=== PATIENT | male | born 1970 | race Caucasian/White ===

== ENCOUNTER 2017-01-24 01:59 | Inpatient (IN) | payer MEDICARE ==
[2017-01-24] MEDS ORDERED: NALOXONE 0.4 MG/ML 10 ML VIAL ONE ×2 (02:00→02:27)
[2017-01-24] MEDS ORDERED: DEXTROSE 50%-WATER 50 ML SYRINGE IVP ONE ×2 (02:00→10:54)
[2017-01-24] MEDS ORDERED: DEXTROSE 5%-0.45% NACL 1,000 ML BAG IV ONE (02:00)
[2017-01-24] MEDS ORDERED: SODIUM CHLORIDE 0.9% 500 ML BAG ONE ×2 (02:27→07:10)
[2017-01-24] MEDS ORDERED: RX INFO: IV CONTRAST WAS GIVEN 1 EACH MISC MISCELLANE PRN (04:37)
[2017-01-24] MEDS ORDERED: NALOXONE 0.4 MG/ML 1 ML VIAL IV PRN (04:38)
[2017-01-24] MEDS ORDERED: DEXTROSE 5%-0.45% NACL 1,000 ML IV SCH (04:45)
[2017-01-24 05:22] LABS: Basophils # (A) 0.1 k/uL (0-0.2); Basophils % (A) 0 %; CH 31.4; CHCM 31.8; Eosinophils # (A) 0.1 k/uL (0-0.7); Eosinophils % (A) 0 %; HCT 42.6 % (39.0-53.0); HDW 2.99; Hypochromasia Slight; Luc # (Auto) 0.16; Luc % (Auto) 1; Lymphocytes # (A) 2.5 k/uL (1.0-4.8); Lymphocytes % (A) 9 %; MCH 32.6 pg (25.0-35.0); MCHC 32.8 g/dL (31.0-37.0); MCV 99.2 fL (80.0-100.0); Mean Platelet Volume 8.5; Monocytes % (A) 4 %; Neutrophils % (A) 86 %; RBC 4.29 m/uL (4.30-5.90); RDW 12.8 % (11.5-15.5); WBC (Perox) 27.28
[2017-01-24 05:29] LABS: WBC 26.8 k/uL (3.8-10.6)
[2017-01-24 05:40] LABS: INR 3.1 (<1.1); Prothrombin Time 29.7 sec (9.0-12.0)
[2017-01-24 05:42] LABS: Partial Thromboplastin Time 81.2 sec (22.0-30.0)
[2017-01-24] MEDS ORDERED: WATER IV ONE ×4 (05:44→10:45)
[2017-01-24] MEDS ORDERED: ACETYLCYSTEINE IV ONE ×4 (05:44→10:45)
[2017-01-24] MEDS ORDERED: DEXTROSE 5% IV ONE ×4 (05:44→10:45)
[2017-01-24] MEDS ORDERED: diphenhydrAMINE 50 MG/ML 1 ML VIAL IVP ONE (05:44)
[2017-01-24] MEDS ORDERED: SODIUM CHLORIDE 0.9% 500 ML IV STA (05:46)
[2017-01-24] MEDS ORDERED: SODIUM CHLORIDE 0.9% 1,000 ML IV STA ×2 (05:46)
[2017-01-24] MEDS ORDERED: SODIUM CHLORIDE 0.9% 2,000 ML IV STA (05:46)
[2017-01-24] MEDS ORDERED: NOREPINEPHRIN 16 MG-0.9%NS PMX 16 MG/250 ML ML IV ONE (05:47)
[2017-01-24] MEDS ORDERED: DEXTROSE 5%-0.45% NACL 1,000 ML IV ONE (05:47)
[2017-01-24 05:48] LABS: ABG PH 7.11 (7.35-7.45)
[2017-01-24 05:49] LABS: ABG Base Excess -13.6 mmol/L; ABG HCO3 14 mmol/L (21-25); ABG PCO2 46 mmHg (35-45); ABG PO2 179 mmHg (83-108); ABG TCO2 16 mmol/L (19-24)
[2017-01-24] MEDS ORDERED: PANTOPRAZOLE 40 MG/10 ML VIAL IVP STA (05:49)
[2017-01-24 05:57] LABS: Manual Review Performed
--- NOTE | 2017-01-24 05:57 | XR ---
EXAM: XR Chest, 1 View CLINICAL HISTORY: Reason: cardiac arrest/ tube placement TECHNIQUE: Frontal view of the chest. COMPARISON: None. FINDINGS: Lungs: Hazy prominence of the central pulmonary vasculature with mild peribronchial cuffing suggesting mild pulmonary edema, likely cardiogenic in nature. Pleural space: Unremarkable. No pneumothorax. Heart: Unremarkable. No cardiomegaly. Mediastinum: Unremarkable. Bones/joints: Unremarkable. Tubes, lines and devices: Right-sided IJ central venous line with tip overlying the SVC. ET tube seen with tip approximately 5.5 cm from the mendoza. Upper abdomen: Elevated left hemidiaphragm. IMPRESSION: 1. Right-sided IJ central venous line and ET tube place, as above. 2. Likely mild pulmonary edema, likely cardiogenic in nature.
[2017-01-24] MEDS ORDERED: NALOXONE 4 MG in SODIUM CHLORIDE 0.9% 100 ML IV PRN (06:00)
[2017-01-24 06:05] LABS: Creatine Kinase MB 51.8 ng/mL (0.0-2.4); Troponin I 1.91 ng/mL (0.000-0.034)
[2017-01-24 06:06] LABS: Acetaminophen <10.0 ug/mL; Alcohol 10 mg/dL; Alkaline Phosphatase 142 U/L (38-126); Anion Gap 19 mmol/L; Blood Urea Nitrogen 14 mg/dL (9-20); Calcium 6.6 mg/dL (8.4-10.2); Carbon Dioxide 16 mmol/L (22-30); Chloride 103 mmol/L (98-107); Glucose 435 mg/dL (74-99); Magnesium 2.9 mg/dL (1.6-2.3); Non-African American GFR(MDRD) 26 (>60 ml/min/1.73 sqM); Potassium 5.4 mmol/L (3.5-5.1); Salicylate <1.0 mg/dL; Sodium 138 mmol/L (137-145); Total Bilirubin 0.9 mg/dL (0.2-1.3); Total Protein 4.1 g/dL (6.3-8.2)
[2017-01-24 06:07] LABS: Phosphorous 9.4 mg/dL (2.5-4.5)
[2017-01-24 06:08] LABS: ALT 4011 U/L (21-72); AST 3082 U/L (17-59)
[2017-01-24 06:11] LABS: Amorphous Sediment,Urine Rare /hpf; Appearance,Urine Cloudy (Clear); Bilirubin,Urine Negative (Negative); Glucose,Urine (UA) 3+ (Negative); Ketones,Urine Negative (Negative); Leukocyte Esterase,Urine Negative (Negative); Nitrite,Urine Negative (Negative); Particle Count 11348; Protein,Urine 1+ (Negative); RBC,Urine 8 /hpf (0-5); Specific Gravity,Urine 1.019 (1.001-1.035); Sperm,Urine Few /hpf; UA Billing (MACRO vs. MICRO) MICRO; Urobilinogen,Urine <2.0 mg/dL (<2.0)
[2017-01-24 06:13] LABS: Acetaminophen <10.0 ug/mL; Alcohol <10 mg/dL; Alkaline Phosphatase 206 U/L (38-126); Anion Gap 15 mmol/L; Blood Urea Nitrogen 15 mg/dL (9-20); Calcium 6.6 mg/dL (8.4-10.2); Carbon Dioxide 18 mmol/L (22-30); Chloride 102 mmol/L (98-107); Glucose 411 mg/dL (74-99); Magnesium 2.9 mg/dL (1.6-2.3); Non-African American GFR(MDRD) 23 (>60 ml/min/1.73 sqM); Salicylate <1.0 mg/dL; Sodium 135 mmol/L (137-145); Total Bilirubin 1.1 mg/dL (0.2-1.3); Total Protein 4.5 g/dL (6.3-8.2)
[2017-01-24 06:14] LABS: Phosphorous 8.5 mg/dL (2.5-4.5); Potassium 6.4 mmol/L (3.5-5.1)
[2017-01-24 06:15] LABS: ALT 5999 U/L (21-72); AST 4741 U/L (17-59)
[2017-01-24 06:21] LABS: Creatine Kinase MB 99.6 ng/mL (0.0-2.4)
[2017-01-24 06:22] LABS: Troponin I 2.86 ng/mL (0.000-0.034)
[2017-01-24 06:35] LABS: Basophils # (A) 0.1 k/uL (0-0.2); Basophils % (A) 1 %; CHCM 31.9; Eosinophils % (A) 0 %; HCT 35.4 % (39.0-53.0); HGB 11.8 gm/dL (13.0-17.5); Luc # (Auto) 0.15; Luc % (Auto) 1; Lymphocytes # (A) 1.6 k/uL (1.0-4.8); Lymphocytes % (A) 11 %; MCH 33.5 pg (25.0-35.0); MCHC 33.2 g/dL (31.0-37.0); MCV 100.8 fL (80.0-100.0); Mean Platelet Volume 8.6; Monocytes # (A) 0.6 k/uL (0-1.0); Monocytes % (A) 4 %; Neutrophils # (A) 12.3 k/uL (1.3-7.7); Neutrophils % (A) 83 %; RBC 3.51 m/uL (4.30-5.90); RDW 12.9 % (11.5-15.5); WBC 14.8 k/uL (3.8-10.6); WBC (Perox) 14.96
[2017-01-24 06:36] LABS: INR 4.4 (<1.1); Prothrombin Time 42.9 sec (9.0-12.0)
[2017-01-24 06:37] LABS: Partial Thromboplastin Time 82.7 sec (22.0-30.0)
[2017-01-24] MEDS ORDERED: SODIUM CHLORIDE 0.9% 1,000 ML BAG ONE (07:10)
[2017-01-24] MEDS: IPRATROPIUM-ALBUTEROL 3 ML NEB INHALATION PRN ×2 (07:36→11:48)
--- NOTE | 2017-01-24 07:41 | ED ---
General Adult HPI - General Stated complaint: Unresponsive Source: RN notes reviewed, old records reviewed - History of Present Illness Initial comments: This is a 46-year-old male ER for evaluation found in cardiopulmonary arrest, patient is unable to give history secondary to his comorbid condition, history of pain from he wasn't patient's , per EMS there called the patient house for arrest, patient was found down cyanotic discharge CPR, patient does have history of back pain and back disease, he does take [place] benzos, states patient was operon 1 PM yesterday and then took a nap and she found him about 1 AM this morning struggling, decreased frustrates status, change of color, CPR was started by family - Related Data Allergies Allergy/AdvReac Type Severity Reaction Status Date / Time No Known Allergies Allergy Verified 01/24/17 06:21 Review of Systems ROS Statement: Those systems with pertinent positive or pertinent negative responses have been documented in the HPI. ROS Other: All systems not noted in ROS Statement are negative. General Exam Limitations: altered mental status General appearance: obtunded, in distress Head exam: Present: atraumatic, normocephalic, normal inspection Eye exam: Present: other (Sluggish pupillary response, dilated) ENT exam: Present: normal exam, mucous membranes moist Neck exam: Present: normal inspection. Absent: tenderness, meningismus, lymphadenopathy Respiratory exam: Present: normal lung sounds bilaterally, decreased breath sounds Cardiovascular Exam: Present: regular rate, normal rhythm, normal heart sounds. Absent: systolic murmur, diastolic murmur, rubs, gallop, clicks Extremities exam: Present: normal inspection Back exam: Present: normal inspection Course - Reevaluation(s) Reevaluation #1: 01/24/17 07:39 Family updated regarding patient's critical and morbid condition, questions are answered Medical Decision Making - Medical Decision Making 46 now the ER for evaluation regarding cardiopulmonary arrest, patient was found down by his in bed. At that time cyanotic noticed to have no pulse, EMS was called patient's bedside, CPR wasn't initiated and patient was intubated. Patient brought to ER and see. Maintained. Patient is also metabolic N O'Radha's secondary to cardiopulmonary arrest, at this point does have withdrawal to pain, slurred but her response, apnea although is full life support including ventilatory support, pressure support and hemodynamic support. Patient be admitted to the ICU will obtain both cardiology and neurology and pulmonology evaluation - Lab Data Result diagrams: 01/24/17 05:01 01/24/17 03:56 Lab Results 01/24/17 01/24/17 01/24/17 Range/Units 02:29 02:29 02:29 WBC 14.8 H (3.8-10.6) k/uL RBC 3.51 L (4.30-5.90) m/uL Hgb 11.8 L (13.0-17.5) gm/dL Hct 35.4 L (39.0-53.0) % MCV 100.8 H (80.0-100.0) fL MCH 33.5 (25.0-35.0) pg MCHC 33.2 (31.0-37.0) g/dL RDW 12.9 (11.5-15.5) % Plt Count 88 L (150-450) k/uL Neutrophils % 83 % Lymphocytes % 11 % Monocytes % 4 % Eosinophils % 0 % Basophils % 1 % Neutrophils # 12.3 H (1.3-7.7) k/uL Lymphocytes # 1.6 (1.0-4.8) k/uL Monocytes # 0.6 (0-1.0) k/uL Eosinophils # 0.0 (0-0.7) k/uL Basophils # 0.1 (0-0.2) k/uL PT 29.7 H (9.0-12.0) sec INR 3.1 (<1.1) APTT 81.2 H (22.0-30.0) sec D-Dimer >35.20 H (<0.60) mg/L FEU Sodium 138 (137-145) mmol/L Potassium 5.4 H (3.5-5.1) mmol/L Chloride 103 (98-107) mmol/L Carbon Dioxide 16 L (22-30) mmol/L Anion Gap 19 mmol/L BUN 14 (9-20) mg/dL Creatinine 2.70 H (0.66-1.25) mg/dL Est GFR (MDRD) Af Amer 31 (>60 ml/min/1.73 sqM) Est GFR (MDRD) Non-Af 26 (>60 ml/min/1.73 sqM) Glucose 435 H (74-99) mg/dL Plasma Lactic Acid Ricky (0.7-2.0) mmol/L Calcium 6.6 L (8.4-10.2) mg/dL Phosphorus 9.4 H* (2.5-4.5) mg/dL Magnesium 2.9 H (1.6-2.3) mg/dL Total Bilirubin 0.9 (0.2-1.3) mg/dL AST 3082 H (17-59) U/L ALT 4011 H (21-72) U/L Alkaline Phosphatase 142 H (38-126) U/L Ammonia (<30) umol/L Total Creatine Kinase (55-170) U/L CK-MB (CK-2) (0.0-2.4) ng/mL CK-MB (CK-2) Rel Index Troponin I (0.000-0.034) ng/mL Total Protein 4.1 L (6.3-8.2) g/dL Albumin 2.2 L (3.5-5.0) g/dL Lipase (23-300) U/L Urine Color Urine Appearance (Clear) Urine pH (5.0-8.0) Ur Specific Tiger (1.001-1.035) Urine Protein (Negative) Urine Glucose (UA) (Negative) Urine Ketones (Negative) Urine Blood (Negative) Urine Nitrite (Negative) Urine Bilirubin (Negative) Urine Urobilinogen (<2.0) mg/dL Ur Leukocyte Esterase (Negative) Urine RBC (0-5) /hpf Amorphous Sediment (None) /hpf Urine Sperm (None) /hpf Stool Occult Blood (Negative) Salicylates <1.0 mg/dL Urine Opiates Screen (NotDetected) Ur Oxycodone Screen (NotDetected) Urine Methadone Screen (NotDetected) Ur Propoxyphene Screen (NotDetected) Acetaminophen <10.0 ug/mL Ur Barbiturates Screen (NotDetected) U Tricyclic Antidepress (NotDetected) Ur Phencyclidine Scrn (NotDetected) Ur Amphetamines Screen (NotDetected) U Methamphetamines Scrn (NotDetected) U Benzodiazepines Scrn (NotDetected) Urine Cocaine Screen (NotDetected) U Marijuana (THC) Screen (NotDetected) Serum Alcohol 10 mg/dL 01/24/17 01/24/17 01/24/17 Range/Units 02:29 02:29 02:29 WBC (3.8-10.6) k/uL RBC (4.30-5.90) m/uL Hgb (13.0-17.5) gm/dL Hct (39.0-53.0) % MCV (80.0-100.0) fL MCH (25.0-35.0) pg MCHC (31.0-37.0) g/dL RDW (11.5-15.5) % Plt Count (150-450) k/uL Neutrophils % % Lymphocytes % % Monocytes % % Eosinophils % % Basophils % % Neutrophils # (1.3-7.7) k/uL Lymphocytes # (1.0-4.8) k/uL Monocytes # (0-1.0) k/uL Eosinophils # (0-0.7) k/uL Basophils # (0-0.2) k/uL PT (9.0-12.0) sec INR (<1.1) APTT (22.0-30.0) sec D-Dimer (<0.60) mg/L FEU Sodium (137-145) mmol/L Potassium (3.5-5.1) mmol/L Chloride (98-107) mmol/L Carbon Dioxide (22-30) mmol/L Anion Gap mmol/L BUN (9-20) mg/dL Creatinine (0.66-1.25) mg/dL Est GFR (MDRD) Af Amer (>60 ml/min/1.73 sqM) Est GFR (MDRD) Non-Af (>60 ml/min/1.73 sqM) Glucose (74-99) mg/dL Plasma Lactic Acid Ricky 14.6 H* (0.7-2.0) mmol/L Calcium (8.4-10.2) mg/dL Phosphorus (2.5-4.5) mg/dL Magnesium (1.6-2.3) mg/dL Total Bilirubin (0.2-1.3) mg/dL AST (17-59) U/L ALT (21-72) U/L Alkaline Phosphatase (38-126) U/L Ammonia 163 H (<30) umol/L Total Creatine Kinase 97190 H (55-170) U/L CK-MB (CK-2) 51.8 H* (0.0-2.4) ng/mL CK-MB (CK-2) Rel Index Troponin I 1.910 H* (0.000-0.034) ng/mL Total Protein (6.3-8.2) g/dL Albumin (3.5-5.0) g/dL Lipase (23-300) U/L Urine Color Urine Appearance (Clear) Urine pH (5.0-8.0) Ur Specific Tiger (1.001-1.035) Urine Protein (Negative) Urine Glucose (UA) (Negative) Urine Ketones (Negative) Urine Blood (Negative) Urine Nitrite (Negative) Urine Bilirubin (Negative) Urine Urobilinogen (<2.0) mg/dL Ur Leukocyte Esterase (Negative) Urine RBC (0-5) /hpf Amorphous Sediment (None) /hpf Urine Sperm (None) /hpf Stool Occult Blood Positive (Negative) Salicylates mg/dL Urine Opiates Screen (NotDetected) Ur Oxycodone Screen (NotDetected) Urine Methadone Screen (NotDetected) Ur Propoxyphene Screen (NotDetected) Acetaminophen ug/mL Ur Barbiturates Screen (NotDetected) U Tricyclic Antidepress (NotDetected) Ur Phencyclidine Scrn (NotDetected) Ur Amphetamines Screen (NotDetected) U Methamphetamines Scrn (NotDetected) U Benzodiazepines Scrn (NotDetected) Urine Cocaine Screen (NotDetected) U Marijuana (THC) Screen (NotDetected) Serum Alcohol mg/dL 01/24/17 01/24/17 01/24/17 Range/Units 03:56 03:56 03:56 WBC (3.8-10.6) k/uL RBC (4.30-5.90) m/uL Hgb (13.0-17.5) gm/dL Hct (39.0-53.0) % MCV (80.0-100.0) fL MCH (25.0-35.0) pg MCHC (31.0-37.0) g/dL RDW (11.5-15.5) % Plt Count (150-450) k/uL Neutrophils % % Lymphocytes % % Monocytes % % Eosinophils % % Basophils % % Neutrophils # (1.3-7.7) k/uL Lymphocytes # (1.0-4.8) k/uL Monocytes # (0-1.0) k/uL Eosinophils # (0-0.7) k/uL Basophils # (0-0.2) k/uL PT 42.9 H (9.0-12.0) sec INR 4.4 (<1.1) APTT 82.7 H (22.0-30.0) sec D-Dimer >35.20 H (<0.60) mg/L FEU Sodium 135 L (137-145) mmol/L Potassium 6.4 H* (3.5-5.1) mmol/L Chloride 102 (98-107) mmol/L Carbon Dioxide 18 L (22-30) mmol/L Anion Gap 15 mmol/L BUN 15 (9-20) mg/dL Creatinine 3.00 H (0.66-1.25) mg/dL Est GFR (MDRD) Af Amer 27 (>60 ml/min/1.73 sqM) Est GFR (MDRD) Non-Af 23 (>60 ml/min/1.73 sqM) Glucose 411 H (74-99) mg/dL Plasma Lactic Acid Ricky 11.3 H* (0.7-2.0) mmol/L Calcium 6.6 L (8.4-10.2) mg/dL Phosphorus 8.5 H* (2.5-4.5) mg/dL Magnesium 2.9 H (1.6-2.3) mg/dL Total Bilirubin 1.1 (0.2-1.3) mg/dL AST 4741 H (17-59) U/L ALT 5999 H (21-72) U/L Alkaline Phosphatase 206 H (38-126) U/L Ammonia (<30) umol/L Total Creatine Kinase (55-170) U/L CK-MB (CK-2) (0.0-2.4) ng/mL CK-MB (CK-2) Rel Index Troponin I (0.000-0.034) ng/mL Total Protein 4.5 L (6.3-8.2) g/dL Albumin 2.4 L (3.5-5.0) g/dL Lipase 3355 H (23-300) U/L Urine Color Urine Appearance (Clear) Urine pH (5.0-8.0) Ur Specific Tiger (1.001-1.035) Urine Protein (Negative) Urine Glucose (UA) (Negative) Urine Ketones (Negative) Urine Blood (Negative) Urine Nitrite (Negative) Urine Bilirubin (Negative) Urine Urobilinogen (<2.0) mg/dL Ur Leukocyte Esterase (Negative) Urine RBC (0-5) /hpf Amorphous Sediment (None) /hpf Urine Sperm (None) /hpf Stool Occult Blood (Negative) Salicylates <1.0 mg/dL Urine Opiates Screen (NotDetected) Ur Oxycodone Screen (NotDetected) Urine Methadone Screen (NotDetected) Ur Propoxyphene Screen (NotDetected) Acetaminophen <10.0 ug/mL Ur Barbiturates Screen (NotDetected) U Tricyclic Antidepress (NotDetected) Ur Phencyclidine Scrn (NotDetected) Ur Amphetamines Screen (NotDetected) U Methamphetamines Scrn (NotDetected) U Benzodiazepines Scrn (NotDetected) Urine Cocaine Screen (NotDetected) U Marijuana (THC) Screen (NotDetected) Serum Alcohol <10 mg/dL 01/24/17 01/24/17 Range/Units 03:56 03:56 WBC (3.8-10.6) k/uL RBC (4.30-5.90) m/uL Hgb (13.0-17.5) gm/dL Hct (39.0-53.0) % MCV (80.0-100.0) fL MCH (25.0-35.0) pg MCHC (31.0-37.0) g/dL RDW (11.5-15.5) % Plt Count (150-450) k/uL Neutrophils % % Lymphocytes % % Monocytes % % Eosinophils % % Basophils % % Neutrophils # (1.3-7.7) k/uL Lymphocytes # (1.0-4.8) k/uL Monocytes # (0-1.0) k/uL Eosinophils # (0-0.7) k/uL Basophils # (0-0.2) k/uL PT (9.0-12.0) sec INR (<1.1) APTT (22.0-30.0) sec D-Dimer (<0.60) mg/L FEU Sodium (137-145) mmol/L Potassium (3.5-5.1) mmol/L Chloride (98-107) mmol/L Carbon Dioxide (22-30) mmol/L Anion Gap mmol/L BUN (9-20) mg/dL Creatinine (0.66-1.25) mg/dL Est GFR (MDRD) Af Amer (>60 ml/min/1.73 sqM) Est GFR (MDRD) Non-Af (>60 ml/min/1.73 sqM) Glucose (74-99) mg/dL Plasma Lactic Acid Ricky (0.7-2.0) mmol/L Calcium (8.4-10.2) mg/dL Phosphorus (2.5-4.5) mg/dL Magnesium (1.6-2.3) mg/dL Total Bilirubin (0.2-1.3) mg/dL AST (17-59) U/L ALT (21-72) U/L Alkaline Phosphatase (38-126) U/L Ammonia (<30) umol/L Total Creatine Kinase 51972 H (55-170) U/L CK-MB (CK-2) 99.6 H* (0.0-2.4) ng/mL CK-MB (CK-2) Rel Index Troponin I 2.860 H* (0.000-0.034) ng/mL Total Protein (6.3-8.2) g/dL Albumin (3.5-5.0) g/dL Lipase (23-300) U/L Urine Color Yellow Urine Appearance Cloudy (Clear) Urine pH 5.0 (5.0-8.0) Ur Specific Tiger 1.019 (1.001-1.035) Urine Protein 1+ H (Negative) Urine Glucose (UA) 3+ H (Negative) Urine Ketones Negative (Negative) Urine Blood Negative (Negative) Urine Nitrite Negative (Negative) Urine Bilirubin Negative (Negative) Urine Urobilinogen <2.0 (<2.0) mg/dL Ur Leukocyte Esterase Negative (Negative) Urine RBC 8 H (0-5) /hpf Amorphous Sediment Rare H (None) /hpf Urine Sperm Few H (None) /hpf Stool Occult Blood (Negative) Salicylates mg/dL Urine Opiates Screen Detected H (NotDetected) Ur Oxycodone Screen Not Detected (NotDetected) Urine Methadone Screen Not Detected (NotDetected) Ur Propoxyphene Screen Not Detected (NotDetected) Acetaminophen ug/mL Ur Barbiturates Screen Not Detected (NotDetected) U Tricyclic Antidepress Not Detected (NotDetected) Ur Phencyclidine Scrn Not Detected (NotDetected) Ur Amphetamines Screen Not Detected (NotDetected) U Methamphetamines Scrn Not Detected (NotDetected) U Benzodiazepines Scrn Detected H (NotDetected) Urine Cocaine Screen Not Detected (NotDetected) U Marijuana (THC) Screen Not Detected (NotDetected) Serum Alcohol mg/dL - Radiology Data Radiology results: report reviewed (Chest x-ray shows positive ET tube, positive right IJ central line), image reviewed Critical Care Time Critical Care Time: Yes Total Critical Care Time: 95 Disposition Clinical Impression: Cardiopulmonary arrest, Cardiopulmonary arrest Disposition: ADMITTED IP TO THIS [facility] Condition: Critical
[2017-01-24 08:16] LABS: Glucose,Whole Blood 237 mg/dL (75-99)
[2017-01-24 08:18] LABS: Glucose,Whole Blood 176 mg/dL (75-99)
--- NOTE | 2017-01-24 08:24 | CT ---
EXAMINATION TYPE: CT brain cem [facility] DATE OF EXAM: 01/24/2017 COMPARISON: NONE HISTORY: Cardiac arrest with altered mental status and neck pain. CT DLP: mGycm. Automated Exposure Control for Dose Reduction was Utilized. TECHNIQUE: CT scan of the head and cervical spine are performed without contrast. FINDINGS: There is no acute intracranial hemorrhage or midline shift identified. The ventricles an d sulci are within normal limits in size. Vague areas of low-attenuation involving bilateral cerebell ar hemispheres are noted. Additional involvement bilateral occipital lobes is felt present. There is mild to borderline moderate lobulated mucosal thickening involving left maxillary sinus. Mild mucosal thickening is seen in left ethmoid sinuses. There is mucosal thickening involving right frontal sinu s and patchy opacification superiorly. The globes are intact bilaterally. Cervical spine is visualized in its entirety from C1 through upper thoracic levels and demonstrates s traightened alignment without evidence of acute fracture or dislocation. Prevertebral soft tissue ap pears within normal limits. The C1-C2 articulation is within normal limits on the coronal images. Vertebral body heights are maintained. There is moderate to severe spurring centered at anterior C6 v ertebra. There is mild to moderate disc space narrowing at C6-C7 level. Spinal canal is preserved. Th ere is partial visualization of right internal jugular central venous catheter and endotracheal tube in the proximal trachea. IMPRESSION: 1. There is no acute fracture or dislocation evident in the cervical spine. 2. No acute intracranial hemorrhage or midline shift is seen. Vague areas of low-attenuation bilatera l cerebellar hemispheres and occipital lobes is concerning for areas of acute infarction. Advise MRI correlation. A preliminary report for this study was provided by [employer]
[2017-01-24] MEDS: ACETYLCYSTEINE IV ONE ×4 (08:26→10:50)
[2017-01-24] MEDS: DEXTROSE 5% IV ONE ×4 (08:26→10:50)
[2017-01-24] MEDS: WATER IV ONE ×4 (08:26→10:50)
[2017-01-24 08:27] LABS: Glucose,Whole Blood <20 mg/dL (75-99)
[2017-01-24 08:54] LABS: Glucose,Whole Blood 272 mg/dL (75-99)
[2017-01-24 09:59] LABS: CH 31.3; CHCM 32.6; HCT 42.9 % (39.0-53.0); HDW 2.96; HGB 14.5 gm/dL (13.0-17.5); Immature Gran Flag Marked; MCH 32.6 pg (25.0-35.0); MCHC 33.7 g/dL (31.0-37.0); MCV 96.6 fL (80.0-100.0); Mean Platelet Volume 8.5; RBC 4.44 m/uL (4.30-5.90); RDW 12.8 % (11.5-15.5); WBC (Perox) 31.65
--- NOTE | 2017-01-24 10:10 | P.CNPUL ---
History of Present Illness Consult date: 01/24/17 Requesting physician: Josey Guerra Reason for consult: other (Critical care management) Chief complaint: Cardiac arrest History of present illness: This is a 46-year-old gentleman who was found unresponsive at home by his approximately 1:00 this morning. He apparently laid down for a nap at 1 PM yesterday. He was not checked on or seen for those 12 hours. EMS was called and CPR was initiated the patient was intubated and brought into the emergency room. Return of spontaneous circulation was obtained. Actual downtime is unclear. The patient was found with fentanyl patches on his urine drug screen was positive for benzodiazepines and opiates. A small amount of alcohol was also detected. The patient was noted to have rectal bleeding with jennifer stools, epistaxis and blood in the oral airway. He has a right IJ triple-lumen catheter that is oozing blood as well. He does have significant coagulopathy, current INR 4.4. A d-dimer is greater than 35. Liver enzymes reveal an AST of 4741, ALT 5999, alk phos 206, total creatinine kinase 26,564, troponin 2.86, lipase 3355, WBC 26.8. His current vent settings are assist control of 14, tidal volume 450, FiO2 100% and a PEEP of 5. Follow-up arterial blood gases reveal a P O2 of 179, P CO2 was 46, pH 7.11. A combination of both respiratory and metabolic acidosis. His chest x-ray does not show any acute cardiopulmonary process. There is some elevation of the left hemidiaphragm. Endotracheal tube in good position. IJ in place. A computed tomography scan of the brain revealed no acute intracranial hemorrhage or midline shift. There is some vague areas of low attenuation bilateral supraorbital cerebellar hemispheres and occipital lobes concerning for acute infarction. He is currently receiving 3 L of IV fluid bolus of 0.9 normal saline, he is on a Narcan drip at 0.6 mg per hour, norepinephrine at 55 mcg/m and an acetylcysteine at 125 mL per hour. He is receiving IV Protonix. Review of Systems ROS unobtainable: due to endotracheal tube Medications and Allergies Allergies Allergy/AdvReac Type Severity Reaction Status Date / Time No Known Allergies Allergy Verified 01/24/17 09:26 Physical Exam Vitals: Vital Signs Pulse 01/24/17 08:20 80 01/24/17 07:37 83 Intake and Output 01/23/17 01/24/17 01/24/17 22:59 06:59 14:59 Other: Weight 83 kg GENERAL EXAM: Unresponsive, intubated on the mechanical ventilator.. HEAD: Normocephalic. EYES: Sluggish reaction of pupils, equal size. NOSE: Clear with pink turbinates, evidence of previous epistaxis. THROAT: Oral endotracheal and gastric tube secured in place. NECK: No masses, no JVD. CHEST: No chest wall deformity. LUNGS: Equal air entry with no crackles, wheeze, rhonchi or dullness. CVS: S1 and S2 normal with no audible murmurs, regular rhythm. ABDOMEN: Soft, normal bowel sounds. SPINE: No scoliosis or deformity SKIN: No rashes or evidence of previous scarring. Extremities: There is no peripheral edema. No clubbing, no cyanosis. Peripheral pulses are intact. Results - Laboratory Findings CBC and BMP: 01/24/17 05:01 01/24/17 03:56 ABG ABG pH 7.11 (7.35-7.45) L* 01/24/17 05:27 ABG pCO2 46 mmHg (35-45) H 01/24/17 05:27 ABG pO2 179 mmHg (83-108) H 01/24/17 05:27 ABG O2 Saturation 99.0 % (94-97) H 01/24/17 05:27 PT/INR, D-dimer PT 42.9 sec (9.0-12.0) H 01/24/17 03:56 INR 4.4 (<1.1) 01/24/17 03:56 D-Dimer >35.20 mg/L FEU (<0.60) H 01/24/17 03:56 Abnormal lab findings: Abnormal Labs 01/24/17 01/24/17 01/24/17 02:05 02:10 02:15 WBC RBC Hgb Hct MCV Plt Count Neutrophils # PT APTT D-Dimer ABG pH ABG pCO2 ABG pO2 ABG HCO3 ABG Total CO2 ABG O2 Saturation Sodium Potassium Carbon Dioxide Creatinine Glucose POC Glucose (mg/dL) <20 L 176 H 237 H Plasma Lactic Acid Ricky Calcium Phosphorus Magnesium AST ALT Alkaline Phosphatase Ammonia Total Creatine Kinase CK-MB (CK-2) Troponin I Total Protein Albumin Lipase Urine Protein Urine Glucose (UA) Urine RBC Amorphous Sediment Urine Sperm Urine Opiates Screen U Benzodiazepines Scrn 01/24/17 01/24/17 01/24/17 02:29 02:29 02:29 WBC 14.8 H RBC 3.51 L Hgb 11.8 L Hct 35.4 L MCV 100.8 H Plt Count 88 L Neutrophils # 12.3 H PT 29.7 H APTT 81.2 H D-Dimer >35.20 H ABG pH ABG pCO2 ABG pO2 ABG HCO3 ABG Total CO2 ABG O2 Saturation Sodium Potassium 5.4 H Carbon Dioxide 16 L Creatinine 2.70 H Glucose 435 H POC Glucose (mg/dL) Plasma Lactic Acid Ricky Calcium 6.6 L Phosphorus 9.4 H* Magnesium 2.9 H AST 3082 H ALT 4011 H Alkaline Phosphatase 142 H Ammonia Total Creatine Kinase CK-MB (CK-2) Troponin I Total Protein 4.1 L Albumin 2.2 L Lipase Urine Protein Urine Glucose (UA) Urine RBC Amorphous Sediment Urine Sperm Urine Opiates Screen U Benzodiazepines Scrn 01/24/17 01/24/17 01/24/17 02:29 02:29 03:56 WBC RBC Hgb Hct MCV Plt Count Neutrophils # PT APTT D-Dimer ABG pH ABG pCO2 ABG pO2 ABG HCO3 ABG Total CO2 ABG O2 Saturation Sodium Potassium Carbon Dioxide Creatinine Glucose POC Glucose (mg/dL) Plasma Lactic Acid Ricky 14.6 H* 11.3 H* Calcium Phosphorus Magnesium AST ALT Alkaline Phosphatase Ammonia 163 H Total Creatine Kinase 16824 H CK-MB (CK-2) 51.8 H* Troponin I 1.910 H* Total Protein Albumin Lipase Urine Protein Urine Glucose (UA) Urine RBC Amorphous Sediment Urine Sperm Urine Opiates Screen U Benzodiazepines Scrn 01/24/17 01/24/17 01/24/17 03:56 03:56 03:56 WBC RBC Hgb Hct MCV Plt Count Neutrophils # PT 42.9 H APTT 82.7 H D-Dimer >35.20 H ABG pH ABG pCO2 ABG pO2 ABG HCO3 ABG Total CO2 ABG O2 Saturation Sodium 135 L Potassium 6.4 H* Carbon Dioxide 18 L Creatinine 3.00 H Glucose 411 H POC Glucose (mg/dL) Plasma Lactic Acid Ricky Calcium 6.6 L Phosphorus 8.5 H* Magnesium 2.9 H AST 4741 H ALT 5999 H Alkaline Phosphatase 206 H Ammonia Total Creatine Kinase 32089 H CK-MB (CK-2) 99.6 H* Troponin I 2.860 H* Total Protein 4.5 L Albumin 2.4 L Lipase 3355 H Urine Protein Urine Glucose (UA) Urine RBC Amorphous Sediment Urine Sperm Urine Opiates Screen U Benzodiazepines Scrn 01/24/17 01/24/17 01/24/17 03:56 05:01 05:27 WBC 26.8 H* RBC 4.29 L Hgb Hct MCV Plt Count 147 L D Neutrophils # 23.0 H PT APTT D-Dimer ABG pH 7.11 L* ABG pCO2 46 H ABG pO2 179 H ABG HCO3 14 L ABG Total CO2 16 L ABG O2 Saturation 99.0 H Sodium Potassium Carbon Dioxide Creatinine Glucose POC Glucose (mg/dL) Plasma Lactic Acid Ricky Calcium Phosphorus Magnesium AST ALT Alkaline Phosphatase Ammonia Total Creatine Kinase CK-MB (CK-2) Troponin I Total Protein Albumin Lipase Urine Protein 1+ H Urine Glucose (UA) 3+ H Urine RBC 8 H Amorphous Sediment Rare H Urine Sperm Few H Urine Opiates Screen Detected H U Benzodiazepines Scrn Detected H 01/24/17 08:52 WBC RBC Hgb Hct MCV Plt Count Neutrophils # PT APTT D-Dimer ABG pH ABG pCO2 ABG pO2 ABG HCO3 ABG Total CO2 ABG O2 Saturation Sodium Potassium Carbon Dioxide Creatinine Glucose POC Glucose (mg/dL) 272 H Plasma Lactic Acid Ricky Calcium Phosphorus Magnesium AST ALT Alkaline Phosphatase Ammonia Total Creatine Kinase CK-MB (CK-2) Troponin I Total Protein Albumin Lipase Urine Protein Urine Glucose (UA) Urine RBC Amorphous Sediment Urine Sperm Urine Opiates Screen U Benzodiazepines Scrn - Diagnostic Findings Chest x-ray: image reviewed Assessment and Plan Plan: Impression: #1 Cardiac arrest of unclear etiology, suspect possible intentional overdose on narcotics with fentanyl patches, benzodiazepines, alcohol. Computed tomography scan of the brain also shows vague areas of low attenuation bilateral cerebellar hemispheres and occipital lobes concerning for areas of acute infarction. #2 Acute liver failure secondary to suspected shock liver with coagulopathy. #3 Acute GI bleeding secondary to above. #4 Hyperkalemia. #5 Rhabdomyolysis. #6 Pancreatitis. #7 Acute leukocytosis. #8 Acute lactic acidosis. #9 Elevated troponins with possible anterior wall ischemia. #10 Hypotension requiring norepinephrine. Plan: The patient was seen and evaluated by Dr. Quick. CT scan, chest xray and labs were all reviewed. We will go ahead and correct the coagulopathy with vitamin K 10 mg and 2 units of fresh frozen plasma. Continue with norepinephrine to maintain mean arterial pressures greater than 60. We will complete the 6 hours of Narcan. We'll continue with IV fluid resuscitation. We will increase the assist-control rate to 20 and decrease the FiO2 to 60% and repeat ABGs. The patient's overall prognosis is quite critical and poor. We'll have discussions with the patient's when she arrives. In the interim, we'll continue with full supportive care. Critical care time 42 minutes. Time with Patient: Greater than 30
[2017-01-24] MEDS ORDERED: PHYTONADIONE 10 MG in SODIUM CHLORIDE 0.9% 50 ML IVPB STA (10:14)
[2017-01-24 10:28] LABS: Add Differential Manual Differential
[2017-01-24 10:30] LABS: Band Neutrophils % 19.5 %; Manual Review Performed; Metamyelocytes % 1.5 %; Nucleated Red Blood Cells 0 /100 WBC (0-0); Total Bilirubin 1.7 mg/dL (0.2-1.3); Total Cells Counted 200
[2017-01-24 10:31] LABS: RBC Morphology Normal; Toxic Granulation Present
[2017-01-24] MEDS: SODIUM CHLORIDE 0.9% 1,000 ML IV STA ×3 (10:32→14:40)
[2017-01-24 10:47] LABS: Calcium 6.1 mg/dL (8.4-10.2); Potassium 6.6 mmol/L (3.5-5.1)
[2017-01-24] MEDS: NOREPINEPHRIN 16 MG-0.9%NS PMX 16 MG/250 ML ML IV SCH ×2 (10:49→16:30)
[2017-01-24] MEDS ORDERED: SODIUM BICARB 8.4% 50 ML SYR (1 MEQ/ML) ONE (10:54)
[2017-01-24] MEDS ORDERED: EPINEPHrine 10 ML SYRINGE (0.1 MG/ML) ONE (10:54)
[2017-01-24] MEDS ORDERED: NOREPINEPHRINE 1 MG/ML 4 ML VIAL IV ONE (10:54)
[2017-01-24] MEDS ORDERED: NALOXONE 1 MG/ML 2 ML SYRINGE ONE (10:54)
[2017-01-24] MEDS ORDERED: SODIUM CHLORIDE 0.9% 250 ML BAG ONE (10:54)
[2017-01-24] MEDS ORDERED: EPINEPHrine 1 MG/ML (MDV) 30 ML VIAL ONE (10:54)
[2017-01-24 11:44] LABS: Glucose,Whole Blood 215 mg/dL (75-99)
--- NOTE | 2017-01-24 12:03 | ECHOF ---
Referral Reason:cardiac arrest MEASUREMENTS -------- HEIGHT: 182.9 cm WEIGHT: 82.6 kg BP: 78/58 RVIDd: 3.6 cm (< 3.3) IVSd: 0.9 cm (0.6 - 1.1) LVIDd: 4.1 cm (3.9 - 5.3) LVPWd: 1.1 cm (0.6 - 1.1) IVSs: 1.3 cm LVIDs: 3.1 cm LVPWs: 1.3 cm LA Diam: 2.1 cm (2.7 - 3.8) Ao Diam: 3.7 cm (2.0 - 3.7) AV Cusp: 2.5 cm (1.5 - 2.6) MV EXCURSION: 19.132 mm (> 18.000) MV EF SLOPE: 78 mm/s (70 - 150) EPSS: 0.3 cm MV E Jairo: 0.58 m/s MV DecT: 368 ms MV A Jairo: 0.46 m/s MV E/A Ratio: 1.25 RAP: 5.00 mmHg RVSP: 26.84 mmHg FINDINGS -------- Sinus rhythm. This was a technically adequate study. The left ventricular size is normal. Left ventricular wall thickness is normal. Overall left ventricular systolic function is mild-moderately impaired with, an EF between 40 - 45 %. The right ventricle is mildly enlarged. The right ventricular systolic function is moderately impaired. The left atrium is normal in size. The aortic valve is trileaflet and appears structurally normal. The mitral valve is normal. Mild mitral regurgitation is present. Mild tricuspid regurgitation present. Right ventricular systolic pressure is normal at < 35 mmHg. Trace/mild (physiologic) pulmonic regurgitation. The aortic root is dilated measuring 3.7cm. There is no pericardial effusion. CONCLUSIONS -------- 1. This was a technically adequate study. 2. Right ventricular systolic pressure is normal at < 35 mmHg. 3. Trace/mild (physiologic) pulmonic regurgitation. 4. The aortic root is dilated measuring 3.7cm. 5. There is no pericardial effusion. 6. Left ventricular wall thickness is normal. 7. Overall left ventricular systolic function is mild-moderately impaired with, an EF between 40 - 45 %. 8. The right ventricle is mildly enlarged. 9. The right ventricular systolic function is moderately impaired. 10. The left atrium is normal in size. 11. The aortic valve is trileaflet and appears structurally normal. 12. The mitral valve is normal. 13. Mild tricuspid regurgitation present. SPA MANAGER/ESTHETICIAN: Ayde Oakley RDCS
--- NOTE | 2017-01-24 12:39 | P.HPIM ---
History of Present Illness H&P Date: 01/24/17 Chief Complaint: Cardiac arrest, multiple organ failure, acute kidney failure, unresponsiven 46-year-old male one of Dr. Guerra's patient with past medical history of chronic back pain has been on pain management with hydrocodone fentanyl and lorazepam who apparently was doing well according to his decided to lay down and take a nap around 1 PM on Tuesday was asleep for 12 hours his found him at 1 AM this morning unresponsive and not breathing at the time, she called 911 patient was started on CPR was intubated and transferred to the emergency department at [facility] he was blue at the time and had no circulation respond initially and finally return to spontaneous circulation. Patient was treated as a cardiac arrest was intubated place on mechanical ventilation his blood pressure was very low patient was on vasopressor. Patient had jennifer stool and was treated for GI bleed surprisingly with everything else ongoing patient CK with troponin was very high his liver enzyme were in the 5000 his creatinine was quite bit high he was diagnosed with multiorgan failure had combination of respiratory metabolic acidosis at the time. Alcohol level was 10 at the time. Still not clear what happened exactly with his cardiac arrest whether patient had ND or had a drug overdose and did not have any respond for long time had multiorgan failure beside CT of the brain showed multiple area of the changes density consistent with low attenuation specially in the supra orbital cerebral hemisphere and the occipital area concern of acute infarct. Patient was started on norepinephrine fluid resuscitation and was giving acetylcysteine and transferred to the intensive care unit Narcan was giving as well at the time. Review of Systems ROS unobtainable: due to endotracheal tube Ears, nose, mouth and throat: Reports neck fullness/pressure Gastrointestinal: Reports bloating, Reports BRBPR Medications and Allergies Home Medications Medication Instructions Recorded Confirmed Type ALPRAZolam [Xanax] 0.5 mg PO TID PRN 01/24/17 01/24/17 History Atorvastatin [Lipitor] 80 mg PO HS 01/24/17 01/24/17 History Gabapentin 600 mg PO BID 01/24/17 01/24/17 History Hydrocodone/Acetaminophen [Vicodin 1 tab PO Q6HR PRN 01/24/17 01/24/17 History Hp 10-300 mg Tablet] Tadalafil [Cialis] 5 mg PO DAILY PRN 01/24/17 01/24/17 History busPIRone HCL [Buspar] 7.5 mg PO BID 01/24/17 01/24/17 History fentaNYL 50MCG/HR PATCH [Duragesic 50 mcg TRANSDERM Q72H 01/24/17 01/24/17 History 50MCG/HR] Allergies Allergy/AdvReac Type Severity Reaction Status Date / Time No Known Allergies Allergy Verified 01/24/17 09:26 Physical Exam Vitals: Vital Signs Pulse 01/24/17 08:20 80 01/24/17 07:37 83 Intake and Output 01/23/17 01/24/17 01/24/17 22:59 06:59 14:59 Other: Weight 83 kg - Constitutional On mechanical ventilation I cannot see any sign of responded all. General appearance: disheveled - EENT Eyes: abnormal pupil, no anicteric sclerae, no disc margins sharp, no edentulous , no EOMI, no PERRLA, no fundus normal, no photophobia, no dentition normal, no poor dentition, no ptosis, scleral icterus, no normal appearance Ears: bilateral: normal - Neck Fullness in the right side of his neck area and there is a central line in the right side as well. Neck: lymphadenopathy Carotids: bilateral: upstroke normal Thyroid: bilateral: normal size - Respiratory Respiratory: bilateral: diminished, dullness, rales - Cardiovascular Rhythm: regular Heart sounds: normal: S1, S2 Abnormal Heart Sounds: systolic murmur - Gastrointestinal General gastrointestinal: no absent bowel sounds, no decreased bowel sounds, distended, no hepatomegaly, no hyperactive bowel sounds, no normal bowel sounds , no organomegaly, no rigid, no scaphoid, soft, no splenomegaly, no tenderness, no umbilical hernia, no ventral hernia - Integumentary Small bruise on the left lower leg and mild scratch on his foot on the back of the large toe. Also had mild bruise on the inner part of the right leg shows slightly below the knee Integumentary: flushed, pale - Musculoskeletal Musculoskeletal: no gait normal, no generalized weakness, no strength equal bilaterally, no right sided weakness, no left sided weakness - Psychiatric Psychiatric: no A&O x's 3, no appropriate affect, no intact judgment & insight Results CBC & Chem 7: 01/24/17 09:12 01/24/17 09:12 Labs: Abnormal Lab Results - Last 24 Hours (Table) 01/24/17 01/24/17 01/24/17 Range/Units 02:05 02:10 02:15 WBC (3.8-10.6) k/uL RBC (4.30-5.90) m/uL Hgb (13.0-17.5) gm/dL Hct (39.0-53.0) % MCV (80.0-100.0) fL Plt Count (150-450) k/uL Neutrophils # (1.3-7.7) k/uL PT (9.0-12.0) sec APTT (22.0-30.0) sec D-Dimer (<0.60) mg/L FEU ABG pH (7.35-7.45) ABG pCO2 (35-45) mmHg ABG pO2 (83-108) mmHg ABG HCO3 (21-25) mmol/L ABG Total CO2 (19-24) mmol/L ABG O2 Saturation (94-97) % Sodium (137-145) mmol/L Potassium (3.5-5.1) mmol/L Carbon Dioxide (22-30) mmol/L Creatinine (0.66-1.25) mg/dL Glucose (74-99) mg/dL POC Glucose (mg/dL) <20 L 176 H 237 H (75-99) mg/dL Plasma Lactic Acid Ricky (0.7-2.0) mmol/L Calcium (8.4-10.2) mg/dL Phosphorus (2.5-4.5) mg/dL Magnesium (1.6-2.3) mg/dL AST (17-59) U/L ALT (21-72) U/L Alkaline Phosphatase (38-126) U/L Ammonia (<30) umol/L Total Creatine Kinase (55-170) U/L CK-MB (CK-2) (0.0-2.4) ng/mL Troponin I (0.000-0.034) ng/mL Total Protein (6.3-8.2) g/dL Albumin (3.5-5.0) g/dL Lipase (23-300) U/L Urine Protein (Negative) Urine Glucose (UA) (Negative) Urine RBC (0-5) /hpf Amorphous Sediment (None) /hpf Urine Sperm (None) /hpf Urine Opiates Screen (NotDetected) U Benzodiazepines Scrn (NotDetected) 01/24/17 01/24/17 01/24/17 Range/Units 02:29 02:29 02:29 WBC 14.8 H (3.8-10.6) k/uL RBC 3.51 L (4.30-5.90) m/uL Hgb 11.8 L (13.0-17.5) gm/dL Hct 35.4 L (39.0-53.0) % MCV 100.8 H (80.0-100.0) fL Plt Count 88 L (150-450) k/uL Neutrophils # 12.3 H (1.3-7.7) k/uL PT 29.7 H (9.0-12.0) sec APTT 81.2 H (22.0-30.0) sec D-Dimer >35.20 H (<0.60) mg/L FEU ABG pH (7.35-7.45) ABG pCO2 (35-45) mmHg ABG pO2 (83-108) mmHg ABG HCO3 (21-25) mmol/L ABG Total CO2 (19-24) mmol/L ABG O2 Saturation (94-97) % Sodium (137-145) mmol/L Potassium 5.4 H (3.5-5.1) mmol/L Carbon Dioxide 16 L (22-30) mmol/L Creatinine 2.70 H (0.66-1.25) mg/dL Glucose 435 H (74-99) mg/dL POC Glucose (mg/dL) (75-99) mg/dL Plasma Lactic Acid Ricky (0.7-2.0) mmol/L Calcium 6.6 L (8.4-10.2) mg/dL Phosphorus 9.4 H* (2.5-4.5) mg/dL Magnesium 2.9 H (1.6-2.3) mg/dL AST 3082 H (17-59) U/L ALT 4011 H (21-72) U/L Alkaline Phosphatase 142 H (38-126) U/L Ammonia (<30) umol/L Total Creatine Kinase (55-170) U/L CK-MB (CK-2) (0.0-2.4) ng/mL Troponin I (0.000-0.034) ng/mL Total Protein 4.1 L (6.3-8.2) g/dL Albumin 2.2 L (3.5-5.0) g/dL Lipase (23-300) U/L Urine Protein (Negative) Urine Glucose (UA) (Negative) Urine RBC (0-5) /hpf Amorphous Sediment (None) /hpf Urine Sperm (None) /hpf Urine Opiates Screen (NotDetected) U Benzodiazepines Scrn (NotDetected) 01/24/17 01/24/17 01/24/17 Range/Units 02:29 02:29 03:56 WBC (3.8-10.6) k/uL RBC (4.30-5.90) m/uL Hgb (13.0-17.5) gm/dL Hct (39.0-53.0) % MCV (80.0-100.0) fL Plt Count (150-450) k/uL Neutrophils # (1.3-7.7) k/uL PT (9.0-12.0) sec APTT (22.0-30.0) sec D-Dimer (<0.60) mg/L FEU ABG pH (7.35-7.45) ABG pCO2 (35-45) mmHg ABG pO2 (83-108) mmHg ABG HCO3 (21-25) mmol/L ABG Total CO2 (19-24) mmol/L ABG O2 Saturation (94-97) % Sodium (137-145) mmol/L Potassium (3.5-5.1) mmol/L Carbon Dioxide (22-30) mmol/L Creatinine (0.66-1.25) mg/dL Glucose (74-99) mg/dL POC Glucose (mg/dL) (75-99) mg/dL Plasma Lactic Acid Ricky 14.6 H* 11.3 H* (0.7-2.0) mmol/L Calcium (8.4-10.2) mg/dL Phosphorus (2.5-4.5) mg/dL Magnesium (1.6-2.3) mg/dL AST (17-59) U/L ALT (21-72) U/L Alkaline Phosphatase (38-126) U/L Ammonia 163 H (<30) umol/L Total Creatine Kinase 79531 H (55-170) U/L CK-MB (CK-2) 51.8 H* (0.0-2.4) ng/mL Troponin I 1.910 H* (0.000-0.034) ng/mL Total Protein (6.3-8.2) g/dL Albumin (3.5-5.0) g/dL Lipase (23-300) U/L Urine Protein (Negative) Urine Glucose (UA) (Negative) Urine RBC (0-5) /hpf Amorphous Sediment (None) /hpf Urine Sperm (None) /hpf Urine Opiates Screen (NotDetected) U Benzodiazepines Scrn (NotDetected) 01/24/17 01/24/17 01/24/17 Range/Units 03:56 03:56 03:56 WBC (3.8-10.6) k/uL RBC (4.30-5.90) m/uL Hgb (13.0-17.5) gm/dL Hct (39.0-53.0) % MCV (80.0-100.0) fL Plt Count (150-450) k/uL Neutrophils # (1.3-7.7) k/uL PT 42.9 H (9.0-12.0) sec APTT 82.7 H (22.0-30.0) sec D-Dimer >35.20 H (<0.60) mg/L FEU ABG pH (7.35-7.45) ABG pCO2 (35-45) mmHg ABG pO2 (83-108) mmHg ABG HCO3 (21-25) mmol/L ABG Total CO2 (19-24) mmol/L ABG O2 Saturation (94-97) % Sodium 135 L (137-145) mmol/L Potassium 6.4 H* (3.5-5.1) mmol/L Carbon Dioxide 18 L (22-30) mmol/L Creatinine 3.00 H (0.66-1.25) mg/dL Glucose 411 H (74-99) mg/dL POC Glucose (mg/dL) (75-99) mg/dL Plasma Lactic Acid Ricky (0.7-2.0) mmol/L Calcium 6.6 L (8.4-10.2) mg/dL Phosphorus 8.5 H* (2.5-4.5) mg/dL Magnesium 2.9 H (1.6-2.3) mg/dL AST 4741 H (17-59) U/L ALT 5999 H (21-72) U/L Alkaline Phosphatase 206 H (38-126) U/L Ammonia (<30) umol/L Total Creatine Kinase 23383 H (55-170) U/L CK-MB (CK-2) 99.6 H* (0.0-2.4) ng/mL Troponin I 2.860 H* (0.000-0.034) ng/mL Total Protein 4.5 L (6.3-8.2) g/dL Albumin 2.4 L (3.5-5.0) g/dL Lipase 3355 H (23-300) U/L Urine Protein (Negative) Urine Glucose (UA) (Negative) Urine RBC (0-5) /hpf Amorphous Sediment (None) /hpf Urine Sperm (None) /hpf Urine Opiates Screen (NotDetected) U Benzodiazepines Scrn (NotDetected) 01/24/17 01/24/17 01/24/17 Range/Units 03:56 05:01 05:27 WBC 26.8 H* (3.8-10.6) k/uL RBC 4.29 L (4.30-5.90) m/uL Hgb (13.0-17.5) gm/dL Hct (39.0-53.0) % MCV (80.0-100.0) fL Plt Count 147 L D (150-450) k/uL Neutrophils # 23.0 H (1.3-7.7) k/uL PT (9.0-12.0) sec APTT (22.0-30.0) sec D-Dimer (<0.60) mg/L FEU ABG pH 7.11 L* (7.35-7.45) ABG pCO2 46 H (35-45) mmHg ABG pO2 179 H (83-108) mmHg ABG HCO3 14 L (21-25) mmol/L ABG Total CO2 16 L (19-24) mmol/L ABG O2 Saturation 99.0 H (94-97) % Sodium (137-145) mmol/L Potassium (3.5-5.1) mmol/L Carbon Dioxide (22-30) mmol/L Creatinine (0.66-1.25) mg/dL Glucose (74-99) mg/dL POC Glucose (mg/dL) (75-99) mg/dL Plasma Lactic Acid Ricky (0.7-2.0) mmol/L Calcium (8.4-10.2) mg/dL Phosphorus (2.5-4.5) mg/dL Magnesium (1.6-2.3) mg/dL AST (17-59) U/L ALT (21-72) U/L Alkaline Phosphatase (38-126) U/L Ammonia (<30) umol/L Total Creatine Kinase (55-170) U/L CK-MB (CK-2) (0.0-2.4) ng/mL Troponin I (0.000-0.034) ng/mL Total Protein (6.3-8.2) g/dL Albumin (3.5-5.0) g/dL Lipase (23-300) U/L Urine Protein 1+ H (Negative) Urine Glucose (UA) 3+ H (Negative) Urine RBC 8 H (0-5) /hpf Amorphous Sediment Rare H (None) /hpf Urine Sperm Few H (None) /hpf Urine Opiates Screen Detected H (NotDetected) U Benzodiazepines Scrn Detected H (NotDetected) 01/24/17 Range/Units 08:52 WBC (3.8-10.6) k/uL RBC (4.30-5.90) m/uL Hgb (13.0-17.5) gm/dL Hct (39.0-53.0) % MCV (80.0-100.0) fL Plt Count (150-450) k/uL Neutrophils # (1.3-7.7) k/uL PT (9.0-12.0) sec APTT (22.0-30.0) sec D-Dimer (<0.60) mg/L FEU ABG pH (7.35-7.45) ABG pCO2 (35-45) mmHg ABG pO2 (83-108) mmHg ABG HCO3 (21-25) mmol/L ABG Total CO2 (19-24) mmol/L ABG O2 Saturation (94-97) % Sodium (137-145) mmol/L Potassium (3.5-5.1) mmol/L Carbon Dioxide (22-30) mmol/L Creatinine (0.66-1.25) mg/dL Glucose (74-99) mg/dL POC Glucose (mg/dL) 272 H (75-99) mg/dL Plasma Lactic Acid Ricky (0.7-2.0) mmol/L Calcium (8.4-10.2) mg/dL Phosphorus (2.5-4.5) mg/dL Magnesium (1.6-2.3) mg/dL AST (17-59) U/L ALT (21-72) U/L Alkaline Phosphatase (38-126) U/L Ammonia (<30) umol/L Total Creatine Kinase (55-170) U/L CK-MB (CK-2) (0.0-2.4) ng/mL Troponin I (0.000-0.034) ng/mL Total Protein (6.3-8.2) g/dL Albumin (3.5-5.0) g/dL Lipase (23-300) U/L Urine Protein (Negative) Urine Glucose (UA) (Negative) Urine RBC (0-5) /hpf Amorphous Sediment (None) /hpf Urine Sperm (None) /hpf Urine Opiates Screen (NotDetected) U Benzodiazepines Scrn (NotDetected) Thrombosis Risk Factor Assmnt - DVT/VTE Prophylaxis DVT/VTE Prophylaxis: Mechanical Prophylaxis ordered Assessment and Plan Plan: 1 cardiac arrest: unclear etiology, whether he had ND or overdose not a clear currently. Patient had significantly elevated troponin and CK which can be concerning as well. We'll consult cardiology continue current management for now keep watching for any arrhythmia. 2 acute respiratory failure: Patient will continue on mechanical ventilation currently continue to see pulmonary. 3 acute GI bleed: With jennifer stool color continue pantoprazole IV and patient survive might require further scope but this could be ischemic colitis from lack of circulation for a period of time. 4 acute liver failure: Secondary to hypotension and bulimic shock. His liver enzyme are quite bed elevated along with his coagulopathy will keep watching for any sign and symptom of bleeding. 5 rhabdomyolysis: Repeat CK in the next 48 hours continue hydration. 6 acute lactic acidosis: Most likely from the hypovolemic shock and the cardiac arrest continue to watch lactic acid daily. 7 severe hypoxic encephalopathy: Consult nephrology EEG will be done repeat another CAT scan might need another EEG soon. I don't see any Niro respond currently with this event patient is almost and vegetation state. 8 hyperkalemia: Consult nephrology continue to treat patient with hydration D5 and insulin and if needed kayaks late enema. 9 elevated troponin with possible anterior wall infarct: Seen cardiology patient will have an echocardiogram today. 10 acute kidney injury with a cuticular necrosis: Os likely from severe hypotension and acute injury continue to watch for any urine output we'll consult nephrology. 11 GI prophylaxis: Patient will be on Pepcid or Protonix IV. 12 DVT prophylaxis: With patient coagulopathy currently patient will have only mechanical prevention with Venodyne boots and knee-high LAURA hose. CODE STATUS: Full code. Expectation from this admission: Patient be in the hospital for more than 2 nights.
[2017-01-24] MEDS ORDERED: INSULIN REGULAR 100 UNIT/ML VIAL IV ONE ×2 (12:45→20:00)
--- NOTE | 2017-01-24 12:47 | CONS ---
REASON FOR CONSULT: Renal failure, hyperkalemia. HISTORY OF PRESENT ILLNESS: The patient is a 46-year-old male who was brought in by EMS after his found him responsive. Patient was in cardiac arrest, CPR was initiated. He was intubated and brought into the hospital. Patient has been severely hypotensive. Currently on 100 mcg of Levophed. He has blood coming out of his FMS system. His CK was elevated at 26,000. Patient has not had much urine output, only about 15 mL for the last hour. He remains intubated. His potassium was high at 6.1 mEq/L. Repeat potassium was at 6.6. CO2 is 15. No prior history of kidney diseases. Patient's drug screen was positive for benzos and opiates. PAST MEDICAL HISTORY: Not available. CURRENT MEDICATIONS: Levophed, Protonix, ( ). Patient will be getting FFP. On examination, patient is sedated on the vent, blood pressure is 84/54 on 100 mcg of Levophed. Heart rate is 78 per minute. He is afebrile. Examination of the heart: S1, S2. Examination of the lungs: Bilateral breath sounds are heard. Patient is on the vent. Examination of the lower extremities shows no evidence of edema. Abdomen is soft, nontender. Not distended. Labs show white cell count of 30, hemoglobin of 14.5 gm/dL. Sodium 137, potassium 6.6, CO2 is 15, BUN 17, serum creatinine 3.08, calcium 6.1. Lactic acid 9.7, AST 9578, ALT 8950. CK was 26,564. ASSESSMENT: 1. Acute kidney injury, acute tubular necrosis secondary to hypotension and cardiac arrest, currently oliguric renal failure. Also exacerbated by the rhabdomyolysis. 2. Status post cardiac arrest. 3. Severe rhabdomyolysis. I am not sure how long the patient was down prior to this admission. 4. Positive drug screen for benzos and opiates. 5. Shock liver. 6. Severe hypotension. 7. Possible underlying DIC. 8. Hyperkalemia associated with acute kidney injury. 9. Non-gap acidosis secondary to renal failure. PLAN: Treat hyperkalemia with IV medications since the patient is having active GI bleed. Agree with FFPs. Two amps of calcium gluconate x1 now. Continue with aggressive IV hydration. We will need to add more pressors as blood pressure still remains low. Overall prognosis is extremely guarded. Repeat potassium in about three hours. Thank you for this consultation. Will continue to follow the patient during the hospitalization. EMILY
[2017-01-24] MEDS ORDERED: SODIUM BICARB 8.4% 50 ML SYR (1 MEQ/ML) IV STA (12:49)
[2017-01-24] MEDS ORDERED: CALCIUM GLUCONATE 2,000 MG in SODIUM CHLORIDE 0.9% 100 ML IVPB ONE (13:30)
[2017-01-24] MEDS ORDERED: SODIUM CHLORIDE 0.9% 99 ML with VASOPRESSIN 20 UNIT IV SCH ×2 (14:00)
[2017-01-24] MEDS: SODIUM CHLORIDE 0.9% 1,000 ML IV SCH ×2 (14:40→15:40)
[2017-01-24 14:59] LABS: Potassium 7.2 mmol/L (3.5-5.1)
--- NOTE | 2017-01-24 16:26 | P.CNNES ---
History of Present Illness Consult date: 01/24/17 Requesting physician: Josey Guerra Reason for Consult: Cardiac arrest, unresponsiveness History of Present Illness: Patient is a 46-year-old male who is being evaluated by the neurology service on 01/24/2017 per the request of Dr. Guerra for unresponsiveness. Patient has a history of chronic back pain and has been treating with pain management with fentanyl, hydrocodone, and lorazepam. Patient's states he was doing well but was sleeping more than usual yesterday. She noticed patient to be gasping for air. He states she checked on patient several hours later and found him to be unresponsive and not breathing. Reportedly the son started CPR and 911 was called. EMS continued CPR and intubated patient and patient was brought to [facility] for treatment. Reportedly patient color was blue and had no circulation upon admission and finally had return of spontaneous circulation. Patient was placed on vasopressors. Patient was noted to have Belle stool, elevated CK with troponin, and was diagnosed with multiorgan failure. It is unclear if patient had cardiac arrest due to ME or drug overdose. CT of the brain was done and showed no cervical spine acute fracture or dislocation. CT of the brain showed no acute intracranial hemorrhage or midline shift. CT did reveal vague areas of low attenuation bilateral cerebellar hemispheres and occipital lobes which are concerning for areas of acute infarction. Patient was given fluid resuscitation as well as Narcan. Cardiology was consulted for elevated troponin and CK. Patient continues on mechanical ventilation. At the time of my evaluation, patient is seen in the ICU and continues to be unresponsive not on any sedation. Review of Systems REVIEW OF SYSTEMS: Otherwise unremarkable and noncontributory. Medications and Allergies Home Medications Medication Instructions Recorded Confirmed Type ALPRAZolam [Xanax] 0.5 mg PO TID PRN 01/24/17 01/24/17 History Atorvastatin [Lipitor] 80 mg PO HS 01/24/17 01/24/17 History Gabapentin 600 mg PO BID 01/24/17 01/24/17 History Hydrocodone/Acetaminophen [Vicodin 1 tab PO Q6HR PRN 01/24/17 01/24/17 History Hp 10-300 mg Tablet] Tadalafil [Cialis] 5 mg PO DAILY PRN 01/24/17 01/24/17 History busPIRone HCL [Buspar] 7.5 mg PO BID 01/24/17 01/24/17 History fentaNYL 50MCG/HR PATCH [Duragesic 50 mcg TRANSDERM Q72H 01/24/17 01/24/17 History 50MCG/HR] Allergies Allergy/AdvReac Type Severity Reaction Status Date / Time No Known Allergies Allergy Verified 01/24/17 09:26 Physical Examination - Vital Signs Vital Signs: Vital Signs Temp Pulse Resp BP Pulse Ox 01/24/17 15:00 75 16 127/55 100 01/24/17 14:50 79 16 92/61 100 01/24/17 14:40 96 21 82/51 100 01/24/17 14:30 77 16 82/51 100 01/24/17 14:20 82 17 91/55 100 01/24/17 14:10 89 23 95/67 100 01/24/17 14:07 99.0 F 79 15 95/67 100 01/24/17 14:00 82 14 95/67 100 01/24/17 13:50 79 24 100 01/24/17 13:40 96 19 84/50 100 01/24/17 13:37 98.6 F 88 17 78/52 100 01/24/17 13:30 103 H 17 84/50 100 01/24/17 13:27 98.9 F 88 14 84/50 01/24/17 13:20 103 H 14 76/48 100 01/24/17 13:14 99.3 F 86 14 77/48 100 01/24/17 13:10 90 23 88/56 100 01/24/17 13:00 102 H 13 100 01/24/17 12:50 105 H 12 99/56 100 01/24/17 12:44 99.5 F 85 18 99/56 100 01/24/17 12:40 94 12 77/45 100 01/24/17 12:34 99.6 F 78 13 77/45 100 01/24/17 12:30 99.6 F 96 14 77/45 100 01/24/17 12:20 76 11 L 108/52 100 01/24/17 12:15 80 01/24/17 12:10 78 15 100 01/24/17 12:00 98 15 100 01/24/17 11:55 78 01/24/17 11:50 92 10 L 91/64 100 01/24/17 11:40 96 11 L 72/53 99 01/24/17 11:30 107 H 10 L 72/53 96 01/24/17 11:20 83 14 96 01/24/17 11:10 87 17 84/54 97 01/24/17 11:00 83 17 99 01/24/17 10:50 68 17 69/44 99 01/24/17 10:40 78 16 77/60 100 01/24/17 10:30 77 16 77/60 99 01/24/17 10:20 80 22 78/58 98 01/24/17 10:10 79 16 87/52 99 01/24/17 10:00 79 18 87/52 99 01/24/17 09:50 81 17 90/56 99 01/24/17 09:40 80 17 98/57 99 01/24/17 09:30 81 17 83/61 99 01/24/17 09:20 80 20 99/62 98 01/24/17 09:10 80 17 99/62 98 01/24/17 09:00 80 17 99/62 98 01/24/17 08:50 89 17 99 01/24/17 08:40 79 17 01/24/17 08:20 80 01/24/17 07:37 83 Intake and Output 01/24/17 01/24/17 01/24/17 06:59 14:59 22:59 Intake Total 1481.0 Output Total 48 Balance 1433.0 Intake: Intake, IV Titration 1081.0 Amount Acetylcysteine IV 4,150 375.0 mg In Dextrose 5% in Water 500 ml @ 125 mls/hr IV ONCE ONE Rx#: [id number] Norepinephrin 16 mg-0.9% 306 Ns Pmx 16 mg In 250 ml @ Titrate IV .Q0M VERNELL Rx#: [id number] Sodium Chloride 0.9% 1, 200 000 ml @ 100 mls/hr IV . Q10H STA Rx#:[id number] Sodium Chloride 0.9% 99 200 ml @ 0.03 UNITS/MIN 9 mls /hr IV .Q11H7M VERNELL with Vasopressin 20 unit Rx#: [id number] Blood Product 400 Ffp 24 Cpda Unit 209 [id number] Ffp 24 Cpda Unit 191 [id number] Output: Urine 48 Other: Voiding Method Indwelling Catheter Weight 83 kg PHYSICAL EXAM: GENERAL APPEARANCE: Patient is a well-developed, male who is seen in the ICU setting intubated HEENT: Normocephalic, atraumatic, CARDIOVASCULAR: Regular rate and rhythm. ABDOMEN: Nontender, nondistended. EXTREMITIES: Show no edema or clubbing. NEUROLOGICAL EXAM: Meaningful neurological exam cannot be done due to patient's unresponsiveness and intubation. No gag reflex was able to be elicited. Patient does not withdraw to pain. Toes are silent. Results - Laboratory Findings CBC and BMP: 01/24/17 09:12 01/24/17 14:16 Abnormal Lab Findings: Abnormal Labs 01/24/17 01/24/17 01/24/17 02:05 02:10 02:15 WBC RBC Hgb Hct MCV Plt Count Neutrophils # Neutrophils # (Manual) PT APTT D-Dimer ABG pH ABG pCO2 ABG pO2 ABG HCO3 ABG Total CO2 ABG O2 Saturation Sodium Potassium Carbon Dioxide Creatinine Glucose POC Glucose (mg/dL) <20 L 176 H 237 H Plasma Lactic Acid Ricky Calcium Phosphorus Magnesium Total Bilirubin AST ALT Alkaline Phosphatase Ammonia Total Creatine Kinase CK-MB (CK-2) Troponin I Total Protein Albumin Lipase Urine Protein Urine Glucose (UA) Urine RBC Amorphous Sediment Urine Sperm Urine Opiates Screen U Benzodiazepines Scrn 01/24/17 01/24/17 01/24/17 02:29 02:29 02:29 WBC 14.8 H RBC 3.51 L Hgb 11.8 L Hct 35.4 L MCV 100.8 H Plt Count 88 L Neutrophils # 12.3 H Neutrophils # (Manual) PT 29.7 H APTT 81.2 H D-Dimer >35.20 H ABG pH ABG pCO2 ABG pO2 ABG HCO3 ABG Total CO2 ABG O2 Saturation Sodium Potassium 5.4 H Carbon Dioxide 16 L Creatinine 2.70 H Glucose 435 H POC Glucose (mg/dL) Plasma Lactic Acid Ricky Calcium 6.6 L Phosphorus 9.4 H* Magnesium 2.9 H Total Bilirubin AST 3082 H ALT 4011 H Alkaline Phosphatase 142 H Ammonia Total Creatine Kinase CK-MB (CK-2) Troponin I Total Protein 4.1 L Albumin 2.2 L Lipase Urine Protein Urine Glucose (UA) Urine RBC Amorphous Sediment Urine Sperm Urine Opiates Screen U Benzodiazepines Scrn 01/24/17 01/24/17 01/24/17 02:29 02:29 03:56 WBC RBC Hgb Hct MCV Plt Count Neutrophils # Neutrophils # (Manual) PT APTT D-Dimer ABG pH ABG pCO2 ABG pO2 ABG HCO3 ABG Total CO2 ABG O2 Saturation Sodium Potassium Carbon Dioxide Creatinine Glucose POC Glucose (mg/dL) Plasma Lactic Acid Ricky 14.6 H* 11.3 H* Calcium Phosphorus Magnesium Total Bilirubin AST ALT Alkaline Phosphatase Ammonia 163 H Total Creatine Kinase 25236 H CK-MB (CK-2) 51.8 H* Troponin I 1.910 H* Total Protein Albumin Lipase Urine Protein Urine Glucose (UA) Urine RBC Amorphous Sediment Urine Sperm Urine Opiates Screen U Benzodiazepines Scrn 01/24/17 01/24/17 01/24/17 03:56 03:56 03:56 WBC RBC Hgb Hct MCV Plt Count Neutrophils # Neutrophils # (Manual) PT 42.9 H APTT 82.7 H D-Dimer >35.20 H ABG pH ABG pCO2 ABG pO2 ABG HCO3 ABG Total CO2 ABG O2 Saturation Sodium 135 L Potassium 6.4 H* Carbon Dioxide 18 L Creatinine 3.00 H Glucose 411 H POC Glucose (mg/dL) Plasma Lactic Acid Ricky Calcium 6.6 L Phosphorus 8.5 H* Magnesium 2.9 H Total Bilirubin AST 4741 H ALT 5999 H Alkaline Phosphatase 206 H Ammonia Total Creatine Kinase 75941 H CK-MB (CK-2) 99.6 H* Troponin I 2.860 H* Total Protein 4.5 L Albumin 2.4 L Lipase 3355 H Urine Protein Urine Glucose (UA) Urine RBC Amorphous Sediment Urine Sperm Urine Opiates Screen U Benzodiazepines Scrn 01/24/17 01/24/17 01/24/17 03:56 05:01 05:27 WBC 26.8 H* RBC 4.29 L Hgb Hct MCV Plt Count 147 L D Neutrophils # 23.0 H Neutrophils # (Manual) PT APTT D-Dimer ABG pH 7.11 L* ABG pCO2 46 H ABG pO2 179 H ABG HCO3 14 L ABG Total CO2 16 L ABG O2 Saturation 99.0 H Sodium Potassium Carbon Dioxide Creatinine Glucose POC Glucose (mg/dL) Plasma Lactic Acid Ricky Calcium Phosphorus Magnesium Total Bilirubin AST ALT Alkaline Phosphatase Ammonia Total Creatine Kinase CK-MB (CK-2) Troponin I Total Protein Albumin Lipase Urine Protein 1+ H Urine Glucose (UA) 3+ H Urine RBC 8 H Amorphous Sediment Rare H Urine Sperm Few H Urine Opiates Screen Detected H U Benzodiazepines Scrn Detected H 01/24/17 01/24/17 01/24/17 08:52 09:12 09:12 WBC 30.0 H* RBC Hgb Hct MCV Plt Count 145 L Neutrophils # Neutrophils # (Manual) 26.3 H PT APTT D-Dimer ABG pH ABG pCO2 ABG pO2 ABG HCO3 ABG Total CO2 ABG O2 Saturation Sodium Potassium Carbon Dioxide Creatinine Glucose POC Glucose (mg/dL) 272 H Plasma Lactic Acid Ricky 9.7 H* Calcium Phosphorus Magnesium Total Bilirubin AST ALT Alkaline Phosphatase Ammonia Total Creatine Kinase CK-MB (CK-2) Troponin I Total Protein Albumin Lipase Urine Protein Urine Glucose (UA) Urine RBC Amorphous Sediment Urine Sperm Urine Opiates Screen U Benzodiazepines Scrn 01/24/17 01/24/17 01/24/17 09:12 10:57 11:42 WBC RBC Hgb Hct MCV Plt Count Neutrophils # Neutrophils # (Manual) PT APTT D-Dimer ABG pH ABG pCO2 ABG pO2 ABG HCO3 ABG Total CO2 ABG O2 Saturation Sodium Potassium 6.6 H* Carbon Dioxide 15 L Creatinine 3.08 H Glucose 230 H POC Glucose (mg/dL) 215 H Plasma Lactic Acid Ricky Calcium 6.1 L* Phosphorus Magnesium Total Bilirubin 1.7 H AST 9578 H ALT 8950 H Alkaline Phosphatase Ammonia Total Creatine Kinase CK-MB (CK-2) Troponin I 27.300 H* Total Protein 5.0 L Albumin 2.6 L Lipase Urine Protein Urine Glucose (UA) Urine RBC Amorphous Sediment Urine Sperm Urine Opiates Screen U Benzodiazepines Scrn 01/24/17 14:16 WBC RBC Hgb Hct MCV Plt Count Neutrophils # Neutrophils # (Manual) PT APTT D-Dimer ABG pH ABG pCO2 ABG pO2 ABG HCO3 ABG Total CO2 ABG O2 Saturation Sodium Potassium 7.2 H* Carbon Dioxide Creatinine Glucose POC Glucose (mg/dL) Plasma Lactic Acid Ricky Calcium Phosphorus Magnesium Total Bilirubin AST ALT Alkaline Phosphatase Ammonia Total Creatine Kinase CK-MB (CK-2) Troponin I Total Protein Albumin Lipase Urine Protein Urine Glucose (UA) Urine RBC Amorphous Sediment Urine Sperm Urine Opiates Screen U Benzodiazepines Scrn Assessment and Plan Plan: Patient is status post cardiac arrest and is currently in the ICU and intubated. It is not clear whether patient had ME causing cardiac arrest or patient had overmedicated himself. Patient may need MRI of the brain if responsiveness improves. Cardiology's been consulted for management of elevated troponin and CK. EEGs been done and results are pending. I was unable to elicit any response with my neuro exam. It does appear patient is in multiorgan failure with severe hypoxic encephalopathy. Continue current ICU support and neurological checks. Prognosis is guarded. I will continue to follow with you. Further recommendations to follow. Thank you for allowing me to participate in the care of your patient. Feel free to call with any questions or concerns. I performed an examination of the patient and discussed the management with the SALESMAN/OWNER. I have reviewed the SALESMAN/OWNER notes and agree with the findings and plan of care.
[2017-01-24 17:47] LABS: Glucose,Whole Blood 96 mg/dL (75-99)
[2017-01-24 17:53] LABS: INR 4.3 (<1.1); Prothrombin Time 42.3 sec (9.0-12.0)
[2017-01-24] MEDS ORDERED: CALCIUM CHLORIDE 100 MG/ML 10 ML SYRINGE IVP STA (20:00)
[2017-01-24] MEDS ORDERED: DEXTROSE 50%-WATER 50 ML SYRINGE IVP STA (20:00)
[2017-01-24] MEDS ORDERED: DEXTROSE 10 % IN WATER 250 ML IV ONE (20:15)
[2017-01-24] MEDS ORDERED: CHLORHEXIDINE GLUCONATE 15 ML CUP MUCOUS MEM SCH (21:00)
[2017-01-24 21:35] VITALS: PULSE 68; RESP 20; TEMP 97.8
[2017-01-24 22:10] VITALS: BP 72/00
--- NOTE | 2017-01-25 07:11 | CONS ---
This is a 46-year-old gentleman who came through the emergency room yesterday, was brought in after an [id number] cardiac arrest. Apparently, EMS was called there. The patient was found unresponsive, cyanotic, had CPR. He has history of back pain, takes a lot of pain medications. Apparently, his found him awake at 1 a.m. struggling and changes in color. CPR was started by family. After he arrived here, he had again another bout of CPR performed. He has history of back pain, pain medications. He was obtained when he came in, intubated, o on a ventilator, on a very high dose of Levophed, unresponsive. His troponin is elevated and this could reflect extensive hypoxia over a prolonged period of time when he was being resuscitated. No other meaningful history is available. It appears that he has not had any allergies. It is not clear if he was on any medications. The patient has no documented history of prior myocardial infarction or CVA. On examination, blood pressure is about 96 systolic on a high dose of Levophed. EKG revealed a sinus mechanism with a right bundle branch block pattern. CAT scan of the head and cervical spine revealed no acute C-spine fracture and no intracranial hemorrhage. On examination, blood pressure is 96 systolic with a high dose of Levophed. Heart rate is about 90 per minute. HEENT: Limited exam was performed. Heart exam reveals S1, S2. Lungs reveal bilateral air entry. Abdomen is distended. Lower extremities reveal diminished pulmonary. Central nervous system examination was not performed. The patient is unresponsive. IMPRESSION: 1. Probable anoxic encephalopathy. 2. Elevated troponins related to hypoxia with prolonged CPR. 3. History of cardiac arrest, details unclear. 4. History of chronic back pain on high dose of pain medications. RECOMMENDATIONS: I am recommending that we get an additional troponin. An echocardiogram at bedside is advised. A neurology consult is pending. Cardiac deleon I have no specific recommendations. Prognosis is poor. It is possible he has anoxic encephalopathy. I would not recommend any aggressive intervention for this patient. Thank you very much for the consult. EMILY
[2017-01-25] MEDS ORDERED: PANTOPRAZOLE 40 MG/10 ML VIAL IV SCH (09:00)
--- NOTE | 2017-01-26 05:13 | EEG ---
DATE OF SERVICE: 01/24/2017 REASON FOR TESTING: Altered mental status, unresponsiveness, status post cardiac arrest. DESCRIPTION OF THE PROCEDURE: This EEG was performed using a 21 channel digital electroencephalograph, following international 10-20 system. DESCRIPTION OF THE RECORDING: From the beginning of the tracing, the background rhythm was mostly consisting of 7 Hz theta frequency in the posterior occipital leads. No obvious asymmetry is seen. Photic stimulation was performed with no driving response seen. No pathological waves were elicited. Occasional lead artifacts are seen. Rare sharp wave activity is noticed. Hyperventilation was not performed. His EKG lead showed an irregularly , irregular rhythm. INTERPRETATION: This EEG is abnormal due to the presence of generalized slowing of the background rhythm, mostly in the theta range. Rare sharp wave activity is seen, which could be consistent with a reduced seizure threshold. No obvious generalized epileptiform discharges were seen. Of note, his EKG lead showed an irregularly, irregular rhythm. Clinical correlation is recommended. SILVANAD
--- NOTE | 2017-03-08 14:25 | P.DS ---
Providers Date of admission: 01/24/17 04:38 Expected date of discharge: 01/24/17 Attending physician: Josey Guerra Consults: 01/24/17 04:38 Consult Physician Stat Consulting Provider: Delfina Pearce Consult Reason/Comments: icu Do you want consulting provider notified?: Yes 01/24/17 06:43 Consult Physician Urgent Consulting Provider: Lui Astorga Consult Reason/Comments: CPR Do you want consulting provider notified?: Yes 01/24/17 10:58 Consult Physician Routine Consulting Provider: Lisandra Terrell Consult Reason/Comments: elevated kidney funtion and electrolyte imbalance Do you want consulting provider notified?: Yes 01/24/17 11:27 Consult Physician Routine Consulting Provider: Thomas Rdz Consult Reason/Comments: Cardiac arrest, unresponsive Do you want consulting provider notified?: Yes Primary care physician: Josey Guerra [facility] Course: 46-year-old male one of Dr. Guerra's patient with past medical history of chronic back pain has been on pain management with hydrocodone fentanyl and lorazepam who apparently was doing well according to his decided to lay down and take a nap around 1 PM on Tuesday was asleep for 12 hours his found him at 1 AM this morning unresponsive and not breathing at the time, she called 911 patient was started on CPR was intubated and transferred to the emergency department at [facility] he was blue at the time and had no circulation respond initially and finally return to spontaneous circulation. Patient was treated as a cardiac arrest was intubated place on mechanical ventilation his blood pressure was very low patient was on vasopressor. Patient had jennifer stool and was treated for GI bleed surprisingly with everything else ongoing patient CK with troponin was very high his liver enzyme were in the 5000 his creatinine was quite bit high he was diagnosed with multiorgan failure had combination of respiratory metabolic acidosis at the time. Alcohol level was 10 at the time. Still not clear what happened exactly with his cardiac arrest whether patient had [place] or had a drug overdose and did not have any respond for long time had multiorgan failure beside CT of the brain showed multiple area of the changes density consistent with low attenuation specially in the supra orbital cerebral hemisphere and the occipital area concern of acute infarct. Patient was started on norepinephrine fluid resuscitation and was giving acetylcysteine and transferred to the intensive care unit Narcan was giving as well at the time. Patient was seen and followed by Dr. Quick for intensive care management. Patient was given vitamin K and fresh frozen plasma for coagulopathy. He was also maintained on norepinephrine and repeated doses of Narcan. Patient was followed by cardiology. Echocardiogram revealed EF 40-45% with mild tricuspid regurgitation. Nephrology followed for acute kidney injury with acute tubular necrosis secondary to hypotension and cardiac arrest. Patient was oliguric as well exacerbated by rhabdomyolysis. Neurology followed the patient. Patient was unresponsive with multiorgan failure and severe hypoxic encephalopathy. EEG was abnormal due to presence of generalized slowing of the background rhythm mostly in the theta range. Rare sharp wave activity could be consistent with reduced seizure threshold. No obvious generalized epileptiform discharges seen. On the evening of January 24, patient had change in his cardiac rhythm with long pauses and nursing staff was unable to palpate femoral or carotid pulses. Family was at the bedside and made him no code. He was in PEA and changed to asystole within a few moments. Please see nursing documentation for details. Discharge diagnoses: 1 cardiac arrest: unclear etiology, whether he had [place] or overdose not a clear currently with severe cardiogenic shock and multiorgan failure. 2 acute hypoxic respiratory failure requiring mechanical ventilation 3 acute GI bleed: With jennifer stool color 4 acute liver failure: Secondary to hypotension and hypovolemic shock. 5 rhabdomyolysis 6 acute lactic acidosis: Most likely from the hypovolemic shock and the cardiac arrest 7 severe hypoxic encephalopathy 8 hyperkalemia 9 elevated troponin with possible anterior wall infarct 10 acute kidney injury with acute tubular necrosis Impression and plan of care have been directed as dictated by the signing physician. Debra Acosta nurse practitioner acting as scribe for signing physician. Patient Condition at Discharge: Undetermined Plan - Discharge Summary New Discharge Prescriptions: No Action fentaNYL 50MCG/HR PATCH [Duragesic 50MCG/HR] 50 mcg TRANSDERM Q72H busPIRone HCL [Buspar] 7.5 mg PO BID Gabapentin 600 mg PO BID Atorvastatin [Lipitor] 80 mg PO HS ALPRAZolam [Xanax] 0.5 mg PO TID PRN PRN Reason: Anxiety Hydrocodone/Acetaminophen [Vicodin Hp 10-300 mg Tablet] 1 tab PO Q6HR PRN PRN Reason: Pain Tadalafil [Cialis] 5 mg PO DAILY PRN PRN Reason: E.D. Discharge Medication List ALPRAZolam [Xanax] 0.5 mg PO TID PRN 01/24/17 [History] Atorvastatin [Lipitor] 80 mg PO HS 01/24/17 [History] Gabapentin 600 mg PO BID 01/24/17 [History] Hydrocodone/Acetaminophen [Vicodin Hp 10-300 mg Tablet] 1 tab PO Q6HR PRN [History] Tadalafil [Cialis] 5 mg PO DAILY PRN 01/24/17 [History] busPIRone HCL [Buspar] 7.5 mg PO BID 01/24/17 [History] fentaNYL 50MCG/HR PATCH [Duragesic 50MCG/HR] 50 mcg TRANSDERM Q72H 01/24/17 [ History] Follow up Appointment(s)/Referral(s): Josey Guerra MD [Primary Care Provider] - 1 Week Discharge Disposition: - Preliminary Cause of Preliminary Cause of : Cardiopulmonary arrest with cardiogenic shock and multiorgan failure
== END 2017-01-24 22:30 | disposition expired ==
LOC: EC 01:59 → 6ICU 04:38
PROVIDERS: ADMIT Family Medicine; ATTEND Family Medicine
PROC: 5A1935Z Respiratory Ventilation, Less than 24 Consecutive Hours (ICD-10-PCS; principal; 2017-01-24)
PROC: 0D9670Z Drainage of Stomach with Drainage Device, Via Natural or Artificial Opening (ICD-10-PCS; 2017-01-24)
PROC: 0T9B70Z Drainage of Bladder with Drainage Device, Via Natural or Artificial Opening (ICD-10-PCS; 2017-01-24)
PROC: 30243K1 Transfusion of Nonautologous Frozen Plasma into Central Vein, Percutaneous Approach (ICD-10-PCS; 2017-01-24)
PROC: 5A12012 Performance of Cardiac Output, Single, Manual (ICD-10-PCS; 2017-01-24)
PROC: 02HV33Z Insertion of Infusion Device into Superior Vena Cava, Percutaneous Approach (ICD-10-PCS; 2017-01-24)
DX: I21.09 ST elevation (STEMI) myocardial infarction involving other coronary artery of anterior wall (principal); J96.01 Acute respiratory failure with hypoxia; I46.9 Cardiac arrest, cause unspecified; K72.00 Acute and subacute hepatic failure without coma; N17.0 Acute kidney failure with tubular necrosis; G93.1 Anoxic brain damage, not elsewhere classified; K85.90 Acute pancreatitis without necrosis or infection, unspecified; M62.82 Rhabdomyolysis; K92.2 Gastrointestinal hemorrhage, unspecified; D68.9 Coagulation defect, unspecified; E87.4 Mixed disorder of acid-base balance; Z99.11 Dependence on respirator [ventilator] status; T40.4X2A Poisoning by other synthetic narcotics, intentional self-harm, initial encounter; Z66 Do not resuscitate; R57.1 Hypovolemic shock; E87.5 Hyperkalemia; I36.1 Nonrheumatic tricuspid (valve) insufficiency; T42.4X2A Poisoning by benzodiazepines, intentional self-harm, initial encounter; T51.0X2A Toxic effect of ethanol, intentional self-harm, initial encounter; D72.829 Elevated white blood cell count, unspecified; R94.01 Abnormal electroencephalogram [EEG]; M54.9 Dorsalgia, unspecified; R34 Anuria and oliguria; G89.29 Other chronic pain; R04.0 Epistaxis; I45.10 Unspecified right bundle-branch block; R14.0 Abdominal distension (gaseous); Z79.899 Other long term (current) drug therapy; Z79.891 Long term (current) use of opiate analgesic; Y90.0 Blood alcohol level of less than 20 mg/100 ml; Y92.013 Bedroom of single-family (private) house as the place of occurrence of the external cause
CPT/HCPCS: 36415; 36556; 36600; 51702; 70450; 71010; 72125; 80053; 80306; 80320; 81001; 82140; 82272; 82533; 82550; 82553; 82805; 83520; 83605; 83690; 83735; 83880; 84100; 84132; 84484; 85025; 85379; 85610; 85730; 86850; 86900; 86901; 87086; 92950; 93005; 93306; 94002; 94640; 95816; 96361; 96365; 96366; 96367; 96368; 96375; 99291; 99292